=== PATIENT | female | born 1990 | race Caucasian/White ===

== ENCOUNTER → 2019-03-23 | Outpatient (CLI) | payer OTHER ==
[~2019-03-23] MED LIST: ARIPIPRAZOLE20 MG PO; CYCLOBENZAPRINE5 M3 PO; Motrin,Rufen800 MG PO
== END | disposition home or self-care (01) ==
LOC: RAD 09:17
DX: M62.838 Other muscle spasm (principal)

== ENCOUNTER 2019-03-29 12:52 | Emergency (ER) | payer OTHER ==
[~2019-03-29] VITALS: Ht 160 cm; Wt 63.0 kg
[2019-03-29] MEDS ORDERED: ARIPIPRAZOLE20 MG PO (12:55)
[2019-03-29] MEDS ORDERED: Motrin,Rufen800 MG PO (15:08)
[2019-03-29] MEDS ORDERED: CYCLOBENZAPRINE5 M3 PO (15:08)
== END 2019-03-29 15:34 | disposition home or self-care (01) ==
LOC: ED 12:52
DX: S50.312A Abrasion of left elbow, initial encounter (principal); R51 Headache; Z79.899 Other long term (current) drug therapy; Z88.1 Allergy status to other antibiotic agents; V49.88XA Car occupant (driver) (passenger) injured in other specified transport accidents, initial encounter; Y93.89 Activity, other specified; Y92.413 State road as the place of occurrence of the external cause; Y99.9 Unspecified external cause status

== ENCOUNTER → 2020-08-07 | Outpatient (CLI) | payer OTHER | END | disposition home or self-care (01) | LOC: COVID19 09:14 | PROVIDERS: ATTEND Family Medicine | DX: Z20.822 Contact with and (suspected) exposure to COVID-19 (principal) ==